=== PATIENT | female | born 1990 ===

== ENCOUNTER 2017-12-02 15:16 | Emergency (ER) | payer SELFPAY ==
[2017-12-02 15:46] VITALS: TEMP 99.3
[2017-12-02 16:27] LABS: SQUAMOUS EPITHIAL 1 /hpf (0-5); URINE BILIRUBIN NEGATIVE (NEGATIVE); URINE BLOOD NEGATIVE (NEGATIVE); URINE CLARITY Clear (Clear); URINE COLOR Yellow (YELLOW); URINE GLUCOSE (UA) NORMAL (Normal); URINE LEUKOCYTE ESTERASE NEG Leu/uL (Negative); URINE NITRATE NEGATIVE (NEGATIVE); URINE PROTEIN NEGATIVE (NEGATIVE); URINE UROBILINOGEN NORMAL mg/dL (0.2-1.0)
[2017-12-02 16:29] LABS: HCG,QUALITATIVE URINE NEGATIVE (NEGATIVE)
--- NOTE | 2017-12-02 17:27 | C.PDOC ---
History Of Present Illness 27 y/o female with asthma c/o 2 episodes of vomiting and 3 episodes of diarrhea this morning with nausea and some abdominal discomfort. pt sts she thinks she ate something bad at [employer] last night. pt c/o cough x 2 weeks. no fever or chills. Time Seen by Provider: 12/02/17 15:48 Chief Complaint (Nursing): Abdominal Pain History Per: Patient History/Exam Limitations: no limitations Onset/Duration Of Symptoms: Days (1) Current Symptoms Are (Timing): Still Present Context: Food Severity: Mild Associated Symptoms: Nausea, Vomiting, Diarrhea Exacerbating Factors: None Last Bowel Movement: Today Past Medical History Reviewed: Historical Data, Nursing Documentation, Vital Signs Vital Signs: Last Vital Signs Temp 99.3 F 12/02/17 15:41 Pulse 100 H 12/02/17 19:18 Resp 16 12/02/17 19:18 BP 109/73 12/02/17 19:18 Pulse Ox 98 12/02/17 19:18 - Medical History PMH: Asthma Family History: States: Unknown Family Hx - Social History Hx Alcohol Use: No Hx Substance Use: No - Immunization History Hx Tetanus Toxoid Vaccination: No Hx Influenza Vaccination: No Hx Pneumococcal Vaccination: No Review Of Systems Constitutional: Negative for: Fever, Chills Respiratory: Positive for: Cough. Negative for: Shortness of Breath Gastrointestinal: Positive for: Nausea, Vomiting, Abdominal Pain, Diarrhea Genitourinary: Negative for: Dysuria, Frequency Skin: Negative for: Rash Neurological: Negative for: Weakness, Numbness Physical Exam - Physical Exam Appears: Non-toxic, No Acute Distress Skin: Warm, Dry Head: Atraumatic, Normacephalic Oral Mucosa: Moist Tongue: Normal Appearing Throat: No Erythema, No Exudate Neck: Supple Chest: No Tenderness Cardiovascular: Rhythm Regular, No Murmur Respiratory: No Decreased Breath Sounds, No Wheezing Gastrointestinal/Abdominal: Bowel Sounds, Soft, No Tenderness, No Distention, No Guarding, No Rebound Neurological/Psych: Oriented x3, Normal Speech, Normal Cognition ED Course And Treatment O2 Sat by Pulse Oximetry: 100 Medical Decision Making Medical Decision Making: plan_ ua. upreg, zofran, re-eval. 624 pm pt feels much better. no linger nauseous. will d/c with zofran and pepcidafter po challenge. 655 pm pt tolerates po challenge. d/c home Disposition Counseled Patient/Family Regarding: Diagnosis, Need For Followup, Rx Given - Disposition Referrals: Roya Houston MD [Medical Doctor] - Disposition: HOME/ ROUTINE Disposition Time: 18:56 Condition: IMPROVED Additional Instructions: Take pepcid and zofran as prescribed. Follow up with your doctor in 1-2 days. Drink increased fluids- water, tea, gatorade, and follow BRAT diet- banana, applesauce, rice, toast/tea. Prescriptions: Famotidine [Pepcid] 20 mg PO DAILY #14 tab Ondansetron ODT [Zofran ODT] 4 mg PO TID #12 odt Instructions: Gastroenteritis (ED) Forms: [facility] ([place]ian), General Discharge Instructions - Clinical Impression Clinical Impression: Gastroenteritis
[2017-12-02 19:19] VITALS: BP 109/73; PULSE 100; RESP 16
[2017-12-04 17:04] VITALS: O2SAT 100
== END 2017-12-02 19:19 | disposition home or self-care (01) ==
LOC: C.ER 15:16
DX: K52.9 Noninfective gastroenteritis and colitis, unspecified (principal)